=== PATIENT | female | born 1985 | race Caucasian/White ===

== ENCOUNTER 2021-12-01 07:30 | Inpatient (IN) | payer OTHER ==
[2021-12-01] MEDS ORDERED: DINOPROSTONE 10 MG VAGINAL SUPPOSITORY VG ONE (07:51)
[2021-12-01] MEDS ORDERED: PROMETHAZINE HCL 25 MG/1 ML VIAL IVPUSH ONE (07:59)
[2021-12-01] MEDS ORDERED: BUTORPHANOL TARTRATE 2 MG/ML VIAL IVPUSH ONE (07:59)
[2021-12-01] MEDS ORDERED: AMPICILLIN - 2 GM in SODIUM CHLORIDE 100 ML IVPB ONE (08:01)
[2021-12-01 09:27] VITALS: BMI 50.3
[2021-12-01] MEDS: DEXTROSE 5%-LACTATED RINGERS 1,000 ML IV SCH (10:00)
[2021-12-01] MEDS ORDERED: AMPICILLIN SODIUM 2 GM VIAL ONE (15:50)
[2021-12-01] MEDS ORDERED: AMPICILLIN SODIUM 1 GM VIAL ONE (19:54)
[2021-12-01] MEDS ORDERED: OXYTOCIN 30 UNITS in 0.9% NS 30 UNIT/500 ML INFUS.BAG IVPB SCH (21:45)
[2021-12-01] MEDS ORDERED: BUTORPHANOL TARTRATE 2 MG/ML VIAL ONE (22:12)
[2021-12-01] MEDS ORDERED: PROMETHAZINE HCL 25 MG/1 ML VIAL ONE (22:12)
[2021-12-01] MEDS: AMPICILLIN - 1 GM in SODIUM CHLORIDE 100 ML IVPB SCH (22:15)
[2021-12-02] MEDS: AMPICILLIN - 1 GM in SODIUM CHLORIDE 100 ML IVPB SCH ×4 (00:15→12:00)
[2021-12-02] MEDS ORDERED: AMPICILLIN SODIUM 1 GM VIAL ONE ×3 (04:09→12:59)
[2021-12-02] MEDS ORDERED: ELECTROLYTE-148 SOLN 1,000 ML IV ONE ×2 (05:00→07:45)
[2021-12-02] MEDS: DEXTROSE 5%-LACTATED RINGERS 1,000 ML IV SCH (05:00)
[2021-12-02] MEDS ORDERED: FENTANYL/BUPIVACAINE/NS/PF - PCEA - 50 ML DISP.SYRIN EP ONE ×2 (07:23→11:02)
[2021-12-02] MEDS ORDERED: BUPIVACAINE HCL/PF 0.25% (2.5MG/ML) 10 ML VIAL ONE ×2 (07:37→12:03)
[2021-12-02] MEDS ORDERED: NALOXONE HCL 0.4 MG/ML VIAL IVPUSH PRN (09:34)
[2021-12-02] MEDS ORDERED: FENTANYL/BUPIVACAINE/NS/PF - PCEA - 50 ML DISP.SYRIN EP SCH (09:45)
[2021-12-02] MEDS ORDERED: CITRIC ACID/SODIUM CITRATE 30 ML UNIT-DOSE CUP PO ONE (13:42)
[2021-12-02] MEDS ORDERED: BUPIVACAINE HCL/PF 0.5% (5MG/ML) 10 ML VIAL ONE (13:55)
[2021-12-02] MEDS ORDERED: OXYTOCIN 20 UNITS in 0.9% NS 20 UNIT/1,000 ML INFUS.BAG IV ONE (13:55)
[2021-12-02] MEDS ORDERED: ONDANSETRON 4 MG/2 ML VIAL ONE (13:57)
[2021-12-02] MEDS ORDERED: morphine SULFATE/PF 1 MG/2 ML (2cc Syringe - QUVA) ONE (13:58)
[2021-12-02] MEDS ORDERED: PROPOFOL 20 ML ONE ×2 (14:39→14:54)
[2021-12-02] MEDS ORDERED: ACETAMINOPHEN 325 MG TABLET (FP) PO PRN (15:24)
[2021-12-02] MEDS ORDERED: METHYLERGONOVINE MALEATE 0.2 MG/1 ML AMP IM PRN (15:24)
[2021-12-02] MEDS ORDERED: diphenhydrAMINE HCL 25 MG CAPSULE (FP) PO ONE (16:25)
[2021-12-02 17:07] LABS: CORD BASE EXCESS -2.6 mmol/L (0-2); CORD HCO3 24.7 mmHg (20-29); CORD PCO2 51.9 mmHg (30-78); CORD pH 7.296 (7.14-7.44)
[2021-12-02 17:12] LABS: CORD BASE EXCESS -3.5 mmol/L (0-2); CORD PCO2 51.1 mmHg (30-78); CORD pH 7.289 (7.14-7.44)
[2021-12-02] MEDS ORDERED: CEFAZOLIN 2 GM in SODIUM CHLORIDE 100 ML IVPB SCH (18:00)
[2021-12-02] MEDS: CEFAZOLIN 2 GM in SODIUM CHLORIDE 100 ML IVPB SCH (21:19)
[2021-12-02] MEDS: IBUPROFEN 600 MG TABLET (FP) PO PRN (22:18)
[2021-12-03] MEDS ORDERED: OXYTOCIN 20 UNITS in 0.9% NS 20 UNIT/1,000 ML INFUS.BAG IV ONE (01:25)
[2021-12-03] MEDS: OXYTOCIN 20 UNITS in 0.9% NS 20 UNIT/1,000 ML INFUS.BAG IV SCH ×2 (02:15→19:49)
[2021-12-03] MEDS ORDERED: oxyCODONE HCL 5 MG TABLET PO PRN (03:25)
[2021-12-03] MEDS: CEFAZOLIN 2 GM in SODIUM CHLORIDE 100 ML IVPB SCH ×2 (06:18→15:00)
[2021-12-03] MEDS: SIMETHICONE 80 MG TAB.CHEW (FP) PO PRN ×3 (06:18→21:48)
[2021-12-03] MEDS: oxyCODONE HCL 5 MG TABLET PO PRN ×2 (06:19→21:48)
[2021-12-03 09:24] LABS: BASO % 0.2 % (0-2.0); EOS % 0.4 % (0-4.5); LYMPH % 9.2 % (8-40); MCH 29.1 pg (25.7-33.7); MCHC 34.3 g/dl (32.0-36.0); MEAN CELL VOLUME 84.8 fl (80-96); MEAN PLT VOLUME 7.5 fl (7.5-11.1); MONO % 11.7 % (3.8-10.2); NEUT % 78.5 % (42.8-82.8); PLATELET COUNT 316 10^3/uL (134-434); RBC 3.78 M/mm3 (3.60-5.2); RDW 14.4 % (11.6-15.6); WHITE BLOOD COUNT 15.7 K/mm3 (4.0-10.0)
[2021-12-03] MEDS: IBUPROFEN 600 MG TABLET (FP) PO PRN ×2 (09:43→14:05)
[2021-12-03] MEDS: ENOXAPARIN NA (PORCINE) 40 MG/0.4 ML DISP.SYRIN SQ SCH (09:44)
[2021-12-03] MEDS ORDERED: BISACODYL 10 MG SUPP.RECT RC PRN (15:25)
[2021-12-03] MEDS: DEXTROSE 5%-LACTATED RINGERS 1,000 ML IV SCH ×2 (19:48→19:49)
[2021-12-03] MEDS: ELECTROLYTE-148 SOLN 1,000 ML IV SCH ×4 (19:48→19:50)
[2021-12-04] MEDS: IBUPROFEN 600 MG TABLET (FP) PO PRN ×2 (07:57→20:55)
[2021-12-04] MEDS: ENOXAPARIN NA (PORCINE) 40 MG/0.4 ML DISP.SYRIN SQ SCH (09:52)
[2021-12-04] MEDS: SIMETHICONE 80 MG TAB.CHEW (FP) PO PRN (20:55)
[2021-12-05 09:00] LABS: BASO % 0.3 % (0-2.0); EOS % 4.2 % (0-4.5); HEMATOCRIT 35.2 % (32.4-45.2); HEMOGLOBIN 11.9 GM/dL (10.7-15.3); LYMPH % 13.5 % (8-40); MCHC 33.9 g/dl (32.0-36.0); MEAN CELL VOLUME 85.5 fl (80-96); MEAN PLT VOLUME 7.7 fl (7.5-11.1); PLATELET COUNT 408 10^3/uL (134-434); RBC 4.12 M/mm3 (3.60-5.2); RDW 13.9 % (11.6-15.6); WHITE BLOOD COUNT 10.5 K/mm3 (4.0-10.0)
[2021-12-05 09:26] VITALS: BP 124/87; PULSE 93; TEMP 98.4
[2021-12-05] MEDS: IBUPROFEN 600 MG TABLET (FP) PO PRN (10:49)
[2021-12-05] MEDS: ENOXAPARIN NA (PORCINE) 40 MG/0.4 ML DISP.SYRIN SQ SCH (10:50)
== END 2021-12-05 12:25 | disposition home or self-care (01) | DRG 788 ==
LOC: JLDR 07:30 → J3W 12-02 20:17
PROVIDERS: ADMIT Obstetrics & Gynecology; ATTEND Obstetrics & Gynecology
PROC: 10D00Z1 Extraction of Products of Conception, Low, Open Approach (ICD-10-PCS; 2021-12-01)
PROC: 3E0P7VZ Introduction of Hormone into Female Reproductive, Via Natural or Artificial Opening (ICD-10-PCS; principal; 2021-12-02)
DX: O48.0 Post-term pregnancy (principal); O61.0 Failed medical induction of labor; O99.214 Obesity complicating childbirth; E66.01 Morbid (severe) obesity due to excess calories; O99.824 Streptococcus B carrier state complicating childbirth; Z3A.40 40 weeks gestation of pregnancy; Z37.0 Single live birth
CPT/HCPCS: 36415; 36600; 59409; 82803; 85025

== ENCOUNTER 2022-01-07 20:37 | Emergency (ER) | payer OTHER ==
[2022-01-07 20:47] VITALS: TEMP 98.6; BMI 46.1
[2022-01-07] MEDS ORDERED: LIDOCAINE 5% TOPICAL PATCH TP ONE (21:21)
[2022-01-07] MEDS ORDERED: ACETAMINOPHEN 1000 MG/100 ML BAG IVPB ONE (21:21)
[2022-01-07] MEDS ORDERED: ASPIRIN 81 MG CHEWABLE TABLETS PO ONE (21:26)
[2022-01-07] MEDS ORDERED: ACETAMINOPHEN INJECTION 100 ML IVPB ONE (21:40)
[2022-01-07] MEDS ORDERED: LIDOCAINE 5% TOPICAL PATCH ONE (21:41)
[2022-01-07] MEDS ORDERED: ASPIRIN 81 MG CHEWABLE TABLETS ONE (21:41)
[2022-01-07 21:46] LABS: BASO % 0.8 % (0-2.0); EOS % 2.8 % (0-4.5); HEMATOCRIT 35.5 % (32.4-45.2); HEMOGLOBIN 11.8 GM/dL (10.7-15.3); LYMPH % 25.3 % (8-40); MCHC 33.4 g/dl (32.0-36.0); MEAN CELL VOLUME 83.7 fl (80-96); MEAN PLT VOLUME 7.4 fl (7.5-11.1); MONO % 8.5 % (3.8-10.2); NEUT % 62.6 % (42.8-82.8); PLATELET COUNT 369 10^3/uL (134-434); RBC 4.24 M/mm3 (3.60-5.2); RDW 14.6 % (11.6-15.6); WHITE BLOOD COUNT 10.6 K/mm3 (4.0-10.0)
[2022-01-07 21:52] LABS: INR 0.95 (0.83-1.09); PROTHROMBIN TIME (PATIENT) 10.9 SEC (9.7-13.0)
[2022-01-07 21:55] LABS: ACTIVATED PTT 33.5 SECONDS (25.2-36.5)
[2022-01-07] MEDS ORDERED: LIDOCAINE PATCH REMOVAL MC SCH (22:00)
[2022-01-07 22:06] LABS: CALCIUM 8.7 mg/dL (8.5-10.1)
[2022-01-07 22:07] LABS: ALBUMIN 3.6 g/dl (3.4-5.0); BLOOD UREA NITROGEN 17.2 mg/dL (7-18)
[2022-01-07 22:10] LABS: CREATININE 0.7 mg/dL (0.55-1.3)
[2022-01-07 22:12] LABS: BILIRUBIN,TOTAL 0.2 mg/dL (0.2-1); TOT PROT 7.3 g/dl (6.4-8.2)
[2022-01-08 00:19] VITALS: BP 129/78
[2022-01-08 19:22] VITALS: PULSE 88
== END 2022-01-08 00:20 | disposition home or self-care (01) ==
LOC: JER 20:37
PROC: 3E033NZ Introduction of Analgesics, Hypnotics, Sedatives into Peripheral Vein, Percutaneous Approach (ICD-10-PCS; principal; 2022-01-07)
DX: R07.9 Chest pain, unspecified (principal)
CPT/HCPCS: 36415; 71046-TC-FY; 80053; 83735; 84484; 84702; 85025; 85379; 85610; 85730; 93005; 93010; 99284-25

== ENCOUNTER 2023-02-11 07:57 | Emergency (ER) | payer OTHER ==
[2023-02-11 08:04] VITALS: BP 128/95; PULSE 96; RESP 18; TEMP 98.3; BMI 51.2
[2023-02-11] MEDS ORDERED: IBUPROFEN 400 MG TABLET (FP) PO ONE ×2 (08:40→09:01)
== END 2023-02-11 10:27 | disposition home or self-care (01) ==
LOC: JER 07:57
DX: J02.9 Acute pharyngitis, unspecified (principal); Z20.822 Contact with and (suspected) exposure to COVID-19
CPT/HCPCS: 0241U-QW; 87651; 99283-25

== ENCOUNTER 2024-04-23 11:18 | Emergency (ER) | payer OTHER ==
[2024-04-23 11:27] VITALS: TEMP 98.4; BMI 51.0
[2024-04-23] MEDS: amLODIPine BESYLATE 10 MG TABLET (FP) PO ONE (12:49)
[2024-04-23] MEDS ORDERED: amLODIPine BESYLATE 10 MG TABLET (FP) ONE (12:50)
[2024-04-23 13:18] LABS: URINE APPEARANCE CLEAR; URINE BILIRUBIN NEGATIVE (NEGATIVE); URINE COLOR YELLOW; URINE GLUCOSE (UA) NEGATIVE (NEGATIVE); URINE KETONE NEGATIVE (NEGATIVE); URINE LEUK ESTERASE NEGATIVE (NEGATIVE); URINE NITRITE NEGATIVE (NEGATIVE); URINE PROTEIN NEGATIVE (NEGATIVE); URINE UROBILINOGEN 0.2 mg/dL (0.2-1.0)
[2024-04-23 13:20] LABS: HEMOGLOBIN 13.4 GM/dL (10.7-15.3); RBC 4.75 M/mm3 (3.60-5.2); WHITE BLOOD COUNT 9.7 K/mm3 (4.0-10.0)
[2024-04-23 13:21] LABS: BASO % 0.8 % (0-2.0); EOS % 0.9 % (0-4.5); HCG,QUALITATIVE URINE Negative; HEMATOCRIT 40.3 % (32.4-45.2); LYMPH % 20.2 % (8-40); MCH 28.2 pg (25.7-33.7); MCHC 33.3 g/dl (32.0-36.0); MEAN CELL VOLUME 84.9 fl (80-96); MEAN PLT VOLUME 7.7 fl (7.5-11.1); MONO % 8.9 % (3.8-10.2); NEUT % 69.2 % (42.8-82.8); PLATELET COUNT 389 10^3/uL (134-434); RDW 14.7 % (11.6-15.6)
[2024-04-23 13:31] LABS: POTASSIUM 3.7 mmol/L (3.5-5.1)
[2024-04-23 13:34] LABS: ALBUMIN 3.9 g/dl (3.4-5.0); BLOOD UREA NITROGEN 8.6 mg/dL (7-18); CALCIUM 9.3 mg/dL (8.5-10.1)
[2024-04-23 13:37] LABS: CREATININE 0.7 mg/dL (0.55-1.3)
[2024-04-23 13:39] LABS: BILIRUBIN,TOTAL 0.7 mg/dL (0.2-1); TOT PROT 7.6 g/dl (6.4-8.2)
[2024-04-23 14:00] VITALS: BP 130/79; PULSE 77; RESP 16
== END 2024-04-23 15:54 | disposition home or self-care (01) ==
LOC: JER 11:18
DX: R20.2 Paresthesia of skin (principal); R20.0 Anesthesia of skin; R07.9 Chest pain, unspecified
CPT/HCPCS: 36415; 71045-TC-FY; 80053; 81003; 84443; 84484; 84703; 85025; 93005; 93010; 99285-25

== ENCOUNTER 2024-04-26 18:09 | Emergency (ER) | payer OTHER ==
[2024-04-26 18:16] VITALS: TEMP 98.4; BMI 49.8
[2024-04-26 20:47] LABS: BASO % 0.5 % (0-2.0); EOS % 0.4 % (0-4.5); HEMATOCRIT 38.9 % (32.4-45.2); HEMOGLOBIN 13.2 GM/dL (10.7-15.3); LYMPH % 19.7 % (8-40); MCH 28.3 pg (25.7-33.7); MCHC 33.9 g/dl (32.0-36.0); MEAN CELL VOLUME 83.6 fl (80-96); MEAN PLT VOLUME 7.4 fl (7.5-11.1); NEUT % 68.4 % (42.8-82.8); PLATELET COUNT 365 10^3/uL (134-434); RBC 4.65 M/mm3 (3.60-5.2); RDW 14.9 % (11.6-15.6); WHITE BLOOD COUNT 9.1 K/mm3 (4.0-10.0)
[2024-04-26] MEDS: SODIUM CHLORIDE 1,000 ML IV STA (20:59)
[2024-04-26 21:08] LABS: POTASSIUM 4.3 mmol/L (3.5-5.1)
[2024-04-26 21:11] LABS: ALBUMIN 3.8 g/dl (3.4-5.0); BLOOD UREA NITROGEN 7.3 mg/dL (7-18); CALCIUM 9.3 mg/dL (8.5-10.1)
[2024-04-26 21:15] LABS: CREATININE 0.8 mg/dL (0.55-1.3)
[2024-04-26 21:16] LABS: BILIRUBIN,TOTAL 0.8 mg/dL (0.2-1); TOT PROT 7.4 g/dl (6.4-8.2)
[2024-04-26 21:41] VITALS: BP 148/80; PULSE 72; RESP 16
[2024-04-26] MEDS ORDERED: amLODIPine BESYLATE 5 MG TABLET (FP) PO ONE (22:26)
== END 2024-04-26 22:38 | disposition home or self-care (01) ==
LOC: JER 18:09
PROC: 3E0337Z Introduction of Electrolytic and Water Balance Substance into Peripheral Vein, Percutaneous Approach (ICD-10-PCS; principal; 2024-04-26)
DX: I10 Essential (primary) hypertension (principal); R53.1 Weakness; Z20.822 Contact with and (suspected) exposure to COVID-19
CPT/HCPCS: 0241U-QW; 36415; 71046-TC-FY; 80053; 84703; 85025; 93005; 93010; 99285-25

== ENCOUNTER 2024-08-17 13:53 | Emergency (ER) | payer OTHER ==
[2024-08-17 14:19] VITALS: BP 154/92; PULSE 70; RESP 18; TEMP 98.1; BMI 48.0
[2024-08-17 16:30] LABS: BASO % 0.7 % (0-2.0); EOS % 1.1 % (0-4.5); HEMATOCRIT 39.5 % (32.4-45.2); HEMOGLOBIN 13.1 GM/dL (10.7-15.3); LYMPH % 23.2 % (8-40); MCH 28.3 pg (25.7-33.7); MCHC 33.1 g/dl (32.0-36.0); MEAN CELL VOLUME 85.5 fl (80-96); MEAN PLT VOLUME 7.5 fl (7.5-11.1); MONO % 9.5 % (3.8-10.2); NEUT % 65.5 % (42.8-82.8); PLATELET COUNT 386 10^3/uL (134-434); RBC 4.62 M/mm3 (3.60-5.2); RDW 14.5 % (11.6-15.6); WHITE BLOOD COUNT 9.5 K/mm3 (4.0-10.0)
[2024-08-17] MEDS ORDERED: KETOROLAC TROMETHAMINE 30 MG/1 ML VIAL ONE (16:46)
[2024-08-17] MEDS: KETOROLAC TROMETHAMINE 30 MG/1 ML VIAL IVPUSH ONE (16:50)
[2024-08-17 17:11] LABS: POTASSIUM 4.1 mmol/L (3.5-5.1)
[2024-08-17 17:13] LABS: CALCIUM 9.1 mg/dL (8.5-10.1)
[2024-08-17 17:14] LABS: ALBUMIN 3.7 g/dl (3.4-5.0); BLOOD UREA NITROGEN 8.6 mg/dL (7-18)
[2024-08-17 17:17] LABS: CREATININE 0.8 mg/dL (0.55-1.3)
[2024-08-17 17:18] LABS: BILIRUBIN,TOTAL 0.7 mg/dL (0.2-1)
[2024-08-17 17:19] LABS: TOT PROT 7.4 g/dl (6.4-8.2)
== END 2024-08-17 20:48 | disposition home or self-care (01) ==
LOC: JER 13:53
PROC: 3E0333Z Introduction of Anti-inflammatory into Peripheral Vein, Percutaneous Approach (ICD-10-PCS; principal; 2024-08-17)
DX: R07.89 Other chest pain (principal); R20.2 Paresthesia of skin
CPT/HCPCS: 36415; 70450-TC; 71046-TC-FY; 80053; 84484; 84703; 85025; 93005; 93010; 99285-25